=== PATIENT | male | born 1970 | race Two or more races ===

== ENCOUNTER 2016-09-24 06:55 | Day surgery (SDC) | payer OTHER ==
[2016-09-24 07:30] LABS: Basophils # (auto) 0 uL; Basophils % (auto) 0.4 % (0.0-2.0); Eosinophils # (auto) 0.4 uL; Hematocrit 49.8 % (41.0-53.0); Hemoglobin 16.4 g/dL (13.5-17.5); Lymphocytes # (auto) 1.4 uL; Lymphocytes % (auto) 22.8 % (10.0-50.0); Mean Corpuscular Hemoglobin 28.7 pg (28.0-32.0); Mean Corpuscular Volume 86.9 fL (80.0-100.0); Mean Platelet Volume 9.3 fL (7.4-10.4); Monocytes # (auto) 0.5 uL; Monocytes % (auto) 8.5 % (0.0-12.0); Neutrophils # (auto) 3.7 uL; Neutrophils % (auto) 61.3 % (37.0-80.0); Platelet Count (auto) 195 10^3/uL (140-450); Red Cell Distribution Width 13.9 % (11.6-16.0)
[2016-09-24 07:44] LABS: INR 1.09 (0.9-1.15); Partial Thromboplastin Time 25.9 sec (22.64-33.71); Prothrombin Time 11.2 sec (9.37-12.3)
[2016-09-24] MEDS ORDERED: SODIUM CHLORIDE LOCK 10 ML ONE (08:03)
[2016-09-24] MEDS ORDERED: NALOXONE HCL 0.4 MG/ML VIAL ONE (08:05)
[2016-09-24] MEDS ORDERED: FLUMAZENIL 0.1 MG/ML INJ 10ML MDV IV ONE (08:05)
[2016-09-24] MEDS: MIDAZOLAM HCL 5 MG/ML-1ML VIAL ONE ×4 (08:52→10:12)
[2016-09-24] MEDS: fentaNYL CITRATE 100 MCG/2 ML VL ONE ×4 (08:52→10:12)
[2016-09-24] MEDS: diphenhdrAMINE HCL 50 MG/1 ML VL ONE ×2 (09:01→10:09)
[2016-09-24 10:55] VITALS: BP 104/64
== END 2016-09-24 11:00 | disposition home or self-care (01) ==
LOC: GI 06:55
PROVIDERS: ATTEND Internal Medicine Gastroenterology
DX: K64.8 Other hemorrhoids (principal)
CPT/HCPCS: 36415; 45378; 85025; 85610; 85730; J1200; J2250; J3010